=== PATIENT | female | born 1980 | race Caucasian/White ===

== ENCOUNTER 2017-03-08 07:50 | Emergency (ER) | payer BC | END 2017-03-08 09:25 | disposition home or self-care (01) | LOC: ER1 07:50 | DX: S60.111A Contusion of right thumb with damage to nail, initial encounter (principal); Z79.899 Other long term (current) drug therapy; X58.XXXA Exposure to other specified factors, initial encounter | CPT/HCPCS: 73140; 99284 ==

== ENCOUNTER 2022-04-17 09:52 | Emergency (ER) | payer BC ==
[~2022-04-17 09:52] MED LIST: AUGMENTIN 875-1 EACH PO; DIFLUCAN150 MG PO; ROBITUSSIN AC480 ML PO
== END 2022-04-17 12:18 | disposition left against medical advice (07) ==
LOC: ER1 09:52
DX: M54.6 Pain in thoracic spine (principal); R06.02 Shortness of breath; R00.0 Tachycardia, unspecified
CPT/HCPCS: 71046; 99283